=== PATIENT | male | born 1940 | race Caucasian/White ===

== ENCOUNTER 2020-08-06 15:13 | Observation (INO) | payer OTHER, MEDICARE ==
[~2020-08-06] VITALS: Ht 170.1 cm; Wt 110.8 kg
[2020-08-06 15:21] VITALS: BP 124/61
[2020-08-06 15:49] LABS: BASO % 0.4 % (0.0-1.0); EOS # 0.2 10*3/uL (0.0-0.4); EOS % 2.9 % (1.0-4.0); HEMATOCRIT 35.2 % (42.0-52.0); LYMPH # 1.9 10*3/uL (1.3-4.4); LYMPH % 26.4 % (27.0-41.0); MEAN CELL VOLUME 93.4 fl (80.0-94.0); MEAN CORPUSCULAR HGB 28.6 pg (27.0-31.0); MEAN CORPUSCULAR HGB CONC 30.7 g/dl (33.0-37.0); MEAN PLATELET VOLUME 9.2 fl (9.6-12.3); MONO # 0.8 10*3/uL (0.1-1.0); MONO % 11.5 % (3.0-9.0); NEUT # 4.2 10*3/uL (2.3-7.9); NEUT % 58.5 % (47.0-73.0); PLATELET COUNT AUTOMATED 227 10*3/uL (130-400); RED BLOOD COUNT 3.77 10*6/uL (4.50-5.90); WHITE BLOOD COUNT 7.1 10*3/uL (4.8-10.8)
[2020-08-06 15:59] LABS: ACT PARTIAL THROMBO TIME 29.7 SECONDS (20.0-32.1)
[2020-08-06 16:00] VITALS: BP 164/68
[2020-08-06 16:08] LABS: ALBUMIN 3.3 gm/dl (3.1-4.5); ALKALINE PHOSPHATASE 63 U/L (45-117); BUN 25 mg/dl (7-24); CHLORIDE 109 mmol/L (98-107); CREATININE 1.44 mg/dL (0.70-1.30); POTASSIUM 4.2 mmol/L (3.5-5.1); SGOT/AST 8 IU/L (3-35); SGPT/ALT 17 U/L (12-78); SODIUM 143 mmol/L (136-145); TOTAL PROTEIN 7.1 gm/dL (6.4-8.2)
[2020-08-06 16:15] LABS: TROPONIN I < 0.015 ng/ml (<0.045)
[2020-08-06 19:55] VITALS: BP 137/61
[2020-08-06 23:50] VITALS: BP 126/78
[2020-08-07 05:21] VITALS: BP 139/58
[2020-08-07 06:16] LABS: BASO % 0.5 % (0.0-1.0); EOS # 0.2 10*3/uL (0.0-0.4); EOS % 3.3 % (1.0-4.0); HEMATOCRIT 35.3 % (42.0-52.0); LYMPH # 1.7 10*3/uL (1.3-4.4); LYMPH % 27.1 % (27.0-41.0); MEAN CELL VOLUME 94.4 fl (80.0-94.0); MEAN CORPUSCULAR HGB 28.3 pg (27.0-31.0); MEAN PLATELET VOLUME 9.5 fl (9.6-12.3); MONO # 0.7 10*3/uL (0.1-1.0); MONO % 11.5 % (3.0-9.0); NEUT # 3.6 10*3/uL (2.3-7.9); NEUT % 57.4 % (47.0-73.0); PLATELET COUNT AUTOMATED 220 10*3/uL (130-400); RED BLOOD COUNT 3.74 10*6/uL (4.50-5.90); WHITE BLOOD COUNT 6.3 10*3/uL (4.8-10.8)
[2020-08-07 06:30] LABS: ALBUMIN 3.2 gm/dl (3.1-4.5); ALKALINE PHOSPHATASE 61 U/L (45-117); BUN 23 mg/dl (7-24); CHLORIDE 110 mmol/L (98-107); CHOLESTEROL 146 mg/dL (<200); CREATININE 1.32 mg/dL (0.70-1.30); FREE T4 0.91 ng/dl (0.76-1.46); HDL CHOLESTEROL 40 mg/dl (40-60); LDL CHOLESTEROL 66 mg/dL (9-159); SGOT/AST 6 IU/L (3-35); SGPT/ALT 16 U/L (12-78); SODIUM 144 mmol/L (136-145); TRIGLYCERIDES 201 mg/dl (<150); VLDL CHOLESTEROL 40 mg/dL (6-40)
[2020-08-07 07:25] VITALS: BP 147/39
[2020-08-07] MEDS ORDERED: ZESTRIL20 MG PO (07:52)
[2020-08-07] MEDS ORDERED: LANTUS SOL100 UNIT/1 SC (07:53)
[2020-08-07] MEDS ORDERED: ELIQUIS5 M1 PO (07:54)
[2020-08-07] MEDS ORDERED: BUMETANIDE2 MG PO (07:54)
[2020-08-07] MEDS ORDERED: CRESTOR20 M1 PO (07:55)
[2020-08-07] MEDS ORDERED: K-TAB20 MEQ PO (07:55)
[2020-08-07] MEDS ORDERED: PROSCAR5 M1 PO (07:56)
[2020-08-07] MEDS ORDERED: LOPRESSOR50 M1 PO (07:59)
[2020-08-07] MEDS ORDERED: FERROUS GLUCON324 MG PO (07:59)
[2020-08-07] MEDS ORDERED: ZYLOPRIM100 MG PO (08:01)
[2020-08-07] MEDS ORDERED: NORVASC5 MG PO (08:02)
[2020-08-07] MEDS ORDERED: NOVOLOG FL100 UNIT/2 SQ (08:02)
[2020-08-07] MEDS ORDERED: ARTHRITIS PAIN100 GM T (08:05)
[2020-08-07] MEDS ORDERED: MAGNESIUM OXID420 M1 PO (08:05)
[2020-08-07 08:34] LABS: VITAMIN D, 25-HYDROXY 55.1 ng/mL (30-100)
[2020-08-07 09:20] VITALS: BP 120/58
[2020-08-07 12:00] VITALS: BP 140/57
[2020-08-07 16:00] VITALS: BP 155/61
[2020-08-07 20:00] VITALS: BP 155/75
[2020-08-08] VITALS: BP 127/55
[2020-08-08 06:08] LABS: BASO % 0.2 % (0.0-1.0); EOS # 0.2 10*3/uL (0.0-0.4); EOS % 3.2 % (1.0-4.0); HEMATOCRIT 37.3 % (42.0-52.0); LYMPH # 1.7 10*3/uL (1.3-4.4); LYMPH % 29.2 % (27.0-41.0); MEAN CELL VOLUME 92.8 fl (80.0-94.0); MEAN CORPUSCULAR HGB 28.1 pg (27.0-31.0); MEAN CORPUSCULAR HGB CONC 30.3 g/dl (33.0-37.0); MEAN PLATELET VOLUME 9.2 fl (9.6-12.3); MONO # 0.7 10*3/uL (0.1-1.0); MONO % 12.3 % (3.0-9.0); NEUT # 3.2 10*3/uL (2.3-7.9); NEUT % 54.9 % (47.0-73.0); PLATELET COUNT AUTOMATED 226 10*3/uL (130-400); RED BLOOD COUNT 4.02 10*6/uL (4.50-5.90); RED CELL DISTRI WIDTH 14.8 % (0-14.5); WHITE BLOOD COUNT 5.9 10*3/uL (4.8-10.8)
[2020-08-08 06:11] LABS: BUN 21 mg/dl (7-24); CHLORIDE 106 mmol/L (98-107); CREATININE 1.28 mg/dL (0.70-1.30); POTASSIUM 3.7 mmol/L (3.5-5.1); SODIUM 139 mmol/L (136-145)
[2020-08-08 07:30] VITALS: BP 118/54
[2020-08-08] MEDS ORDERED: BUMETANIDE2 MG PO (11:57)
== END 2020-08-08 11:37 | disposition home or self-care (01) ==
LOC: ED 15:13 → EDHOLD 18:30 → 5E 08-07 07:11
PROVIDERS: Emergency Medicine; Hospitalist; Social Worker Clinical; ADMIT Family Medicine; ATTEND Family Medicine
DX: R06.00 Dyspnea, unspecified (principal); R07.89 Other chest pain; N17.0 Acute kidney failure with tubular necrosis; R60.9 Edema, unspecified; D64.9 Anemia, unspecified; E87.8 Other disorders of electrolyte and fluid balance, not elsewhere classified; E83.41 Hypermagnesemia; R79.89 Other specified abnormal findings of blood chemistry; E11.65 Type 2 diabetes mellitus with hyperglycemia; I48.11 Longstanding persistent atrial fibrillation; I10 Essential (primary) hypertension; E78.5 Hyperlipidemia, unspecified; E43 Unspecified severe protein-calorie malnutrition; E66.9 Obesity, unspecified; Z68.41 Body mass index [BMI] 40.0-44.9, adult; Z79.4 Long term (current) use of insulin; Z79.899 Other long term (current) drug therapy